=== PATIENT | female | born 1980 | race Caucasian/White ===

== ENCOUNTER 2022-06-12 11:32 | Emergency (ER) | payer OTHER ==
[~2022-06-12] VITALS: Ht 165.1 cm; Wt 127.0 kg
[2022-06-12] MEDS ORDERED: IBUPROFEN 400MG TABLET PO ONE (12:00)
[2022-06-12] MEDS ORDERED: IBUP-2028 MT (14:52)
[2022-06-12] MEDS ORDERED: BACITRACIN ZINC OINT UDPKT TOP ONE (15:00)
[2022-06-12 15:23] VITALS: BP 120/60
== END 2022-06-12 15:29 | disposition home or self-care (01) ==
LOC: ER 11:32
DX: S00.212A Abrasion of left eyelid and periocular area, initial encounter (principal); S50.312A Abrasion of left elbow, initial encounter; S80.212A Abrasion, left knee, initial encounter; M25.552 Pain in left hip; R07.81 Pleurodynia; J45.909 Unspecified asthma, uncomplicated; M79.7 Fibromyalgia; Z91.030 Bee allergy status; Z91.040 Latex allergy status; W01.0XXA Fall on same level from slipping, tripping and stumbling without subsequent striking against object, initial encounter; Y93.89 Activity, other specified; Y92.218 Other school as the place of occurrence of the external cause; Y99.8 Other external cause status
CPT/HCPCS: 70486; 71101; 73080; 73110; 73130; 73502; 73564; 81025; 99284